=== PATIENT | female | born 1995 | race Caucasian/White ===

== ENCOUNTER 2018-04-03 10:04 | Emergency (ER) | payer OTHER ==
[2018-04-03 10:37] VITALS: RESP 18
[2018-04-03] MEDS ORDERED: SODIUM CHLORIDE 0.9% 1,000 ML IV STA (10:38)
[2018-04-03] MEDS ORDERED: ACETAMINOPHEN IV (For NPO) 1,000 MG in EMPTY BAG 1 BAG IVPB STA (10:40)
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
[2018-04-03] MEDS ORDERED: LIDOCAINE 1%-EPI 1:100,000 20 ML VIAL SQ STA (13:19)
--- NOTE | 2018-04-03 14:50 | XR ---
EXAMINATION TYPE: XR wrist complete RT DATE OF EXAM: 04/03/2018 CLINICAL HISTORY: Post reduction images of the right wrist TECHNIQUE: Frontal, lateral and oblique images of the right wrist are obtained. COMPARISON: Right wrist radiograph's of the same date FINDINGS: There is improved anatomic alignment of the previously described right wrist fractures on t he dictation of 04/03/2018 at 12:12 PM. Overlying soft tissue swelling and new casting material is seen . There remains approximately 4 mm dorsal displacement of the distal fracture fragment of the radius and approximately 8 mm foreshortening. IMPRESSION: Improved post reduction alignment of the multiple right wrist and hand fractures.
[2018-04-03 14:56] VITALS: BP 122/65; PULSE 82; TEMP 98.2
== END 2018-04-03 14:50 | disposition home or self-care (01) ==
LOC: EC 10:04
DX: S52.614A Nondisplaced fracture of right ulna styloid process, initial encounter for closed fracture (principal); S52.571A Other intraarticular fracture of lower end of right radius, initial encounter for closed fracture; Z79.899 Other long term (current) drug therapy; V89.2XXA Person injured in unspecified motor-vehicle accident, traffic, initial encounter; W22.11XA Striking against or struck by driver side automobile airbag, initial encounter; Y92.410 Unspecified street and highway as the place of occurrence of the external cause
CPT/HCPCS: 73080; 73100; 73110; 99284; 25605; 96365; 96361 ×3; J0131

== ENCOUNTER → 2018-04-12 | Outpatient (CLI) | payer OTHER ==
--- NOTE | 2018-04-12 17:36 | CT ---
EXAMINATION TYPE: CT wrist RT wo con DATE OF EXAM: 04/12/2018 COMPARISON: Plain films 04/03/2017 HISTORY: Follow up fracture per patient CT DLP: 262 mGycm Automated exposure control for dose reduction was used. TECHNIQUE: Axial images 3 mm thick sections. Coronal and sagittal reconstructed images. FINDINGS: There is a comminuted impacted fracture distal metaphyseal radius. This is intra-articular extension. No significant callus formation is identified at this time. Ulnar styloid avulsion is evident. No he aling callus is identified at this time. Remaining osseous structures appear intact. There is minimal step off with posterior displacement of the major radial fracture fragments. Images were obtained through a splint. Three-D reconstructed images performed by the technologist on a separate computer are reviewed rotating on the computer system. IMPRESSION: 1. COMMINUTED MILDLY IMPACTED FRACTURE OF THE DISTAL RADIUS. THIS HAS INTRA-ARTICULAR EXTENSION. NO S IGNIFICANT CALLUS FORMATION TO SUGGEST HEALING IS IDENTIFIED. 2. SMALL AVULSION WITH MILD DIASTASES OF THE ULNAR STYLOID WITHOUT EVIDENCE OF INTERVAL HEALING.
== END ==
LOC: RADCTMAIN 13:08
PROVIDERS: ATTEND Orthopaedic Surgery
DX: S52.501A Unspecified fracture of the lower end of right radius, initial encounter for closed fracture (principal)

== ENCOUNTER 2020-06-20 03:41 | Inpatient (IN) | payer BC ==
[2020-06-20] MEDS ORDERED: CARBOPROST TROMETHAMINE 250 MCG/ML 1 ML AMP IM PRN (04:02)
[2020-06-20] MEDS ORDERED: METHYLERGONOVINE 0.2 MG/ML 1 ML AMP IM PRN (04:02)
[2020-06-20] MEDS ORDERED: OXYTOCIN 10 UNIT/ML 1 ML VIAL IM PRN (04:02)
[2020-06-20] MEDS ORDERED: TERBUTALINE 1 MG/ML VIAL SQ PRN (04:02)
[2020-06-20] MEDS ORDERED: LIDOCAINE 0.5% (PF) 5 MG/ML (50 ML SDV) SQ PRN (04:02)
[2020-06-20] MEDS ORDERED: OXYTOCIN 30 UNITS/500 ML NS 30 UNIT in SALINE 1 500ML.BAG IV SCH ×2 (04:15→07:00)
[2020-06-20] MEDS: LACTATED RINGERS 1,000 ML IV SCH ×3 (04:17→20:45)
[2020-06-20 04:32] LABS: Basophils # (A) 0.1 k/uL (0-0.2); Basophils % (A) 0 %; Eosinophils # (A) 0.2 k/uL (0-0.7); Eosinophils % (A) 1 %; HGB 15.4 gm/dL (11.4-16.0); Lymphocytes # (A) 1.7 k/uL (1.0-4.8); Lymphocytes % (A) 10 %; MCH 32.8 pg (25.0-35.0); MCV 93.8 fL (80.0-100.0); Mean Platelet Volume 8.8; Monocytes # (A) 0.8 k/uL (0-1.0); Monocytes % (A) 5 %; Neutrophils # (A) 13.9 k/uL (1.3-7.7); Neutrophils % (A) 83 %; Platelet Count 212 k/uL (150-450); RBC 4.69 m/uL (3.80-5.40); RDW 13.3 % (11.5-15.5); WBC 16.8 k/uL (3.8-10.6)
[2020-06-20] MEDS ORDERED: SODIUM CHLORIDE 0.9% 100 ML BAG ONE (04:56)
[2020-06-20] MEDS ORDERED: fentaNYL (PF) 50 MCG/ML 5 ML AMP ONE (04:56)
[2020-06-20] MEDS ORDERED: ROPIVACAINE 5MG/ML 20ML VIAL ONE (04:56)
--- NOTE | 2020-06-20 06:16 | P.HPOB ---
History of Present Illness H&P Date: 06/20/20 Chief Complaint: IUP @ 39 weeks, active labor This is a -year-old 2 para 1 at 39 0/7 weeks that presents to labor and delivery with complaints of regular painful contractions. Patient stated she started tiff around 12:30 and presented around 3:30 this morning. Patient denied loss of fluid or vaginal bleeding at home. Patient states she is noted good movement. Patient has been receiving routine care since the first trimester which has been essentially uncomplicated. Patient did have growth restriction with her last and was followed this with normal growth. On bloodwork patient has a blood type of O+, rubella status immune, RPR nonreactive, B surface antigen negative, HIV negative, group beta strep culture was negative on 05/29. Review of Systems Constitutional: Reports fatigue, Denies chills, Denies fever Ears, nose, mouth and throat: Denies headache Cardiovascular: Reports leg edema Respiratory: Denies dyspnea Gastrointestinal: Denies constipation, Denies diarrhea, Denies nausea, Denies vomiting Genitourinary: Reports Past Medical History Past Medical History: No Reported History History of Any Multi-Drug Resistant Organisms: None Reported Past Surgical History: No Surgical Hx Reported Additional Past Surgical History / Comment(s): Wrist surgery. Pt has plate and screws in wrist. Marcellus teeth Past Anesthesia/Blood Transfusion Reactions: No Reported Reaction Past Psychological History: Anxiety Smoking Status: Never smoker Past Alcohol Use History: Occasional Past Drug Use History: None Reported - Past Family History Mother Family Medical History: Hypertension Father Family Medical History: Diabetes Mellitus Medications and Allergies Home Medications Medication Instructions Recorded Confirmed Type Pnv No.95/Ferrous Fum/Folic AC 1 each PO 06/20/20 History [ Multivitamin Tablet] Allergies Allergy/AdvReac Type Severity Reaction Status Date / Time No Known Allergies Allergy Verified 06/20/20 03:58 Exam Osteopathic Statement: *. No significant issues noted on an osteopathic structural exam other than those noted in the History and Physical/Consult. Vital Signs Temp Pulse Resp BP 06/20/20 03:57 97.1 F L 75 16 126/71 Intake and Output 06/19/20 06/19/20 06/20/20 14:59 22:59 06:59 Other: Weight 74.843 kg Targeted physical exam is performed and seen supervisor enrobing a well-nourished well- developed female in no acute distress, she received an epidural after admission. Breathing appears nonlabored, heart has a regular rate and rhythm, abdomen is gravid and appropriate for gestational age, on cervical exam she is 9/100/0 to +1 station. Amniotomy is performed and clear fluid was obtained. heart tones are noted to be category 1 and she is tiff every 2-3 minutes. Results Result Diagrams: 06/20/20 04:05 Abnormal Lab Results - Last 24 Hours (Table) 06/20/20 Range/Units 04:05 WBC 16.8 H (3.8-10.6) k/uL Neutrophils # 13.9 H (1.3-7.7) k/uL Assessment and Plan (1) 39 weeks gestation of Current Visit: Yes Status: Acute Code(s): Z3A.39 - 39 WEEKS GESTATION OF SNOMED Code(s): 78322840 (2) Active labor Current Visit: Yes Status: Acute Code(s): [id number] - SNOMED Code(s): 697449054 Plan: Patient is admitted to labor and delivery for expectant management. Patient desired epidural soon after admission. Anticipate spontaneous vaginal delivery.
[2020-06-20] MEDS ORDERED: diphenhydrAMINE 50 MG/ML 1 ML VIAL IVP PRN ×2 (06:52)
[2020-06-20] MEDS ORDERED: ZOLPIDEM 5 MG TAB PO PRN (06:52)
[2020-06-20] MEDS ORDERED: ACETAMINOPHEN TAB 325 MG TAB PO PRN (06:52)
[2020-06-20] MEDS ORDERED: LANOLIN CREAM 5 GM TUBE TOPICAL PRN (06:52)
[2020-06-20] MEDS ORDERED: HYDROCORTISONE 2.5% RECTAL CREAM 30 GM TUBE RECTAL PRN (06:52)
[2020-06-20] MEDS ORDERED: diphenhydrAMINE 25 MG CAP PO PRN (06:52)
[2020-06-20] MEDS ORDERED: BENZOCAINE/MENTHOL SPRAY 1 GM/SPRAY AEROSOL TOPICAL PRN (06:52)
[2020-06-20] MEDS ORDERED: diphenhydrAMINE 50 MG CAP PO PRN (06:52)
[2020-06-20] MEDS ORDERED: SIMETHICONE 80 MG CHEWABLE PO PRN (06:52)
--- NOTE | 2020-06-20 06:55 | P.PROBDLV ---
Vaginal Delivery Note - . Vaginal Delivery Note: This 25-year-old at 38-0/7 weeks presented to labor and delivery early this morning with complaints of regular painful contractions. Patient was noted to be 5-6 cm with a bulging bag of water. Patient soon requested epidural which was placed without difficulty by the anesthesia department. She was noted to be 7 cm right afterwards with a bulging bag of water and 0 station. Patient underwent amniotomy clear fluid was obtained. Patient progressed to complete began pushing and had a normal spontaneous vaginal delivery of a viable female infant at 639, weight of 6 lbs. 11 oz. and Apgars of 8 and 9 at one and 5 minutes respectively. After two-minute delayed the umbilical cord was doubly clamped and cut and the infant was handed off to the maternal abdomen. Spontaneous cry was noted at . On inspection the patient's vaginal vault right labial laceration was noted and repaired with a [id number] suture of 4-0 chromic. The uterus was noted to be firm and below the umbilicus. Estimated blood loss 100 mL. Patient and tolerated delivery well and are resting comfortably. She plans to bottlefeed.
[2020-06-20] MEDS: SENNOSIDES-DOCUSATE SODIUM 1 EACH TAB PO SCH ×2 (08:12→20:45)
[2020-06-20] MEDS: IBUPROFEN 600 MG TAB PO SCH ×3 (08:14→20:12)
[2020-06-21] MEDS: IBUPROFEN 600 MG TAB PO SCH ×2 (01:10→07:50)
[2020-06-21 07:44] VITALS: BP 107/71; PULSE 74; RESP 16; TEMP 97.8
[2020-06-21] MEDS: SENNOSIDES-DOCUSATE SODIUM 1 EACH TAB PO SCH (07:49)
--- NOTE | 2020-06-21 08:29 | P.DS ---
Providers Date of admission: 06/20/20 03:41 Expected date of discharge: 06/21/20 Attending physician: Sherlyn Humphries Primary care physician: Stated None - Discharge Diagnosis(es) (1) 39 weeks gestation of Current Visit: Yes Status: Acute (2) Active labor Current Visit: Yes Status: Acute (3) Normal spontaneous vaginal delivery Current Visit: Yes Status: Acute (4) Obstetric labial laceration, delivered, current hospitalization Current Visit: Yes Status: Acute Hospital Course: This is a 25-year-old 2 now para 2 woman who was admitted at 39 weeks gestation in spontaneous active labor. Following admission she received an epidural anesthetic. She had artificial rupture of membranes. She went on to have an uncomplicated delivery of a liveborn female infant over an intact perineum with right labial laceration. Apgars were 8 at 1 minute and 9 at 5 minutes and weight was 6 lbs. 11 oz. The patient's course was u nremarkable. By day #1 she was ambulating and voiding without difficulty. She decided not to breast-feed and was bottle feeding successfully. Her vital signs were stable. Her lochia was decreasing and she was requesting discharge home. She is deemed medically stable for discharge home with routine instructions for care and follow-up. Patient Condition at Discharge: Good Plan - Discharge Summary New Discharge Prescriptions: New Ibuprofen [Motrin] 600 mg PO Q6H tab Sennosides-Docusate Sodium [Senokot-S] 2 each PO BID@799,1999 tab No Action Pnv No.95/Ferrous Fum/Folic AC [ Multivitamin Tablet] 1 each PO Discharge Medication List Pnv No.95/Ferrous Fum/Folic AC [ Multivitamin Tablet] 1 each PO 06/20/20 [History] Ibuprofen [Motrin] 600 mg PO Q6H tab 06/21/20 [Rx] Sennosides-Docusate Sodium [Senokot-S] 2 each PO BID@799,1999 tab 06/21/20 [Rx] Follow up Appointment(s)/Referral(s): Sherlyn Humphries MD [STAFF PHYSICIAN] - 6 Weeks Activity/Diet/Wound Care/Special Instructions: Follow-up in the office in 6 weeks or sooner with any concerning signs or symptoms including heavy vaginal bleeding, foul vaginal discharge, fever greater than 100.5, severe abdominal or pelvic pain, redness or swelling of the lower extremities or any concerns for depression. May use [id number] ibuprofen and/or Tylenol as needed for pain. Nothing in the v agina, no intercourse until seen at 6 weeks . Discharge Disposition: HOME SELF-CARE
== END 2020-06-21 09:38 | disposition home or self-care (01) | DRG 807 ==
LOC: 4FBP 03:41
PROVIDERS: ADMIT Obstetrics & Gynecology Obstetrics; ATTEND Obstetrics & Gynecology
PROC: 10E0XZZ Delivery of Products of Conception, External Approach (ICD-10-PCS; principal; 2020-06-20)
PROC: 0HQ9XZZ Repair Perineum Skin, External Approach (ICD-10-PCS; 2020-06-20)
DX: O70.0 First degree perineal laceration during delivery (principal); Z37.0 Single live birth; Z83.3 Family history of diabetes mellitus; Z82.49 Family history of ischemic heart disease and other diseases of the circulatory system; Z3A.39 39 weeks gestation of pregnancy
CPT/HCPCS: 85025; 86850; 86900; 86901